=== PATIENT | male | born 1960 | race Caucasian/White ===

== ENCOUNTER 2018-05-29 06:31 | Day surgery (SDC) | payer OTHER ==
[~2018-05-29 06:31] MED LIST: CEFAZOLIN 2 GM/50 ML (PMX) 50 ML IVPB
[2018-05-29] MEDS ORDERED: BUPIVACAINE 0.25% (MPF) 30 ML INJ (06:45)
[2018-05-29] MEDS ORDERED: ROPIVACAINE 0.5 % 30 ML VIAL ×2 (07:00→10:25)
[2018-05-29] MEDS ORDERED: CEFAZOLIN 1 GM INJ (07:00)
[2018-05-29] MEDS: SOD CHLORIDE 0.9% 1,000 ML IV (08:00)
[2018-05-29] MEDS ORDERED: SUCCINYLCHOLINE CHLORIDE 100 MG/5 ML SYG IV (10:24)
[2018-05-29] MEDS ORDERED: LIDOCAINE 2% (SDV) 5 ML INJ (10:24)
[2018-05-29] MEDS ORDERED: MIDAZOLAM 1 MG/ML 2 ML INJ (10:24)
[2018-05-29] MEDS ORDERED: PROPOFOL 20 ML (10:24)
[2018-05-29] MEDS ORDERED: ROCURONIUM 50 MG INJ (10:24)
[2018-05-29] MEDS ORDERED: HYDROmorphONE 1 MG/5 ML IV SYRINGE IV ×3 (10:30)
[2018-05-29] MEDS ORDERED: FENTAnyl 50 MCG/ML VIAL IV ×3 (10:30)
[2018-05-29] MEDS ORDERED: DIPHENHYDRAMINE 50 MG INJ IV (10:30)
[2018-05-29] MEDS ORDERED: PROCHLORPERAZINE 10 MG INJ IV (10:30)
[2018-05-29] MEDS ORDERED: MEPERIDINE 25 MG INJ IV (10:30)
[2018-05-29] MEDS ORDERED: OXYCODONE/ACETAMINOPHEN (5/325) TAB PO (10:30)
[2018-05-29] MEDS ORDERED: FENTAnyl 50 MCG/ML VIAL (10:56)
[2018-05-29] MEDS ORDERED: ONDANSETRON 4 MG INJ (10:58)
[2018-05-29] MEDS ORDERED: FAMOTIDINE 20 MG INJ (10:58)
[2018-05-29] MEDS ORDERED: DEXAMETHASONE 4 MG/ML 1 ML INJ (10:58)
[2018-05-29] MEDS: POLYMYXIN/BACITRACIN 1L IRRIG (11:04)
[2018-05-29] MEDS ORDERED: SUGAMMADEX SODIUM 200 MG/2 ML VIAL IV ×2 (11:16→11:24)
[2018-05-29] MEDS ORDERED: KETOROLAC 30 MG INJ (11:20)
[2018-05-29] MEDS: HYDROCODONE/APAP (5/325) TAB PO (12:40)
[2018-05-29] MEDS: ONDANSETRON 4 MG INJ IV (12:41)
== END 2018-05-29 14:30 | disposition home or self-care (01) ==
LOC: SDS 06:31
DX: K40.30 Unilateral inguinal hernia, with obstruction, without gangrene, not specified as recurrent (principal)
CPT/HCPCS: 49507; 74018